=== PATIENT | male | born 1970 | race Caucasian/White ===

== ENCOUNTER 2018-06-09 20:38 | Emergency (ER) | payer OTHER ==
[2018-06-09 20:48] VITALS: BP 113/65; PULSE 68; TEMP 98.3; BMI 27.9
--- NOTE | 2018-06-09 21:21 | PDOC ---
History of Present Illness - General Chief Complaint: Abscess Boil Stated Complaint: CYST RT ARM Time Seen by Provider: 06/09/18 21:03 History Source: Patient Exam Limitations: No Limitations - History of Present Illness Initial Comments: 06/09/18 21:16 48-year-old male presents to ED with bump to the right tricep area patient states had an abscess to area approximate months ago which he had drained successfully at the doctor's office. Patient denies history of immunosuppression , MRSA, fever or chills. Patient denies steroid use Timing/Duration: reports: other (1 week) Severity: Yes: mild Location: reports: extremities Respiratory Risk Factors: reports: no cause identified Associated Symptoms: reports: swelling/mass/lumps Past History - Travel Traveled outside of the country in the last 30 days: No Close contact w/someone who was outside of country & ill: No - Past Medical History Allergies/Adverse Reactions: Allergies Allergy/AdvReac Type Severity Reaction Status Date / Time No Known Allergies Allergy Verified 06/09/18 20:46 Home Medications: Ambulatory Orders Oxycodone HCl/Acetaminophen [Percocet 5-325 mg Tablet] 1 - 2 tab PO Q6H PRN #4 tab MDD 4 06/09/18 Sulfamethoxazole/Trimethoprim [Bactrim Ds -] 1 tab PO BID #14 tablet 06/09/18 COPD: No - Suicide/Smoking/Psychosocial Hx Smoking History: Never smoked Patient Lives Alone: No Lives with/in: spouse/SO Review of Systems - Review of Systems Able to Perform ROS?: Yes Constitutional: No: Symptoms Reported Musculoskeletal: No: Muscle Pain Integumentary: Yes: Lumps *Physical Exam - Vital Signs Last Vital Signs Temp Pulse Resp BP Pulse Ox 98.3 F 68 18 113/65 98 06/09/18 20:46 06/09/18 20:46 06/09/18 20:46 06/09/18 20:46 06/09/18 20:46 - Physical Exam General Appearance: Yes: Nourished, Appropriately Dressed. No: Apparent Distress Extremity: negative: Normal Inspection Integumentary: positive: Other (2 cm erythematous fluctuant raised abscess to right mid tricep) Neurologic: positive: Motor Strength 5/5 (ambulatory) Procedures - Incision and Drainage I&D Site: Right: Arm Betadine cleansed: Yes Anesthesia: 1% Lidocaine Volume(ml): 1 Blade Size: 11 Attempts: 1 Dressing: Yes Medical Decision Making - Medical Decision Making 06/09/18 21:20 CC: abscess to rt tricep, denies hx mrsa Exam: fluctulant abscess Plan: i& D done. wound cx sent. Dc home with bactrim and percocet x 4 tabs *DC/Admit/Observation/Transfer Diagnosis at time of Disposition: Abscess of arm, right - Discharge Dispostion Disposition: HOME Condition at time of disposition: Improved - Prescriptions Prescriptions: Oxycodone HCl/Acetaminophen [Percocet 5-325 mg Tablet] 1 - 2 tab PO Q6H PRN #4 tab MDD 4 PRN Reason: Pain Sulfamethoxazole/Trimethoprim [Bactrim Ds -] 1 tab PO BID #14 tablet - Referrals Referrals: Glenna Santiago [Primary Care Provider] - - Patient Instructions Printed Discharge Instructions: DI for Incision and Drainage of a Skin Abscess Additional Instructions: Take antibiotics as prescribed. Change dressing daily. - Post Discharge Activity
== END 2018-06-09 21:22 | disposition home or self-care (01) ==
LOC: JERFT 20:38
PROC: 0J9D0ZZ Drainage of Right Upper Arm Subcutaneous Tissue and Fascia, Open Approach (ICD-10-PCS; principal; 2018-06-09)
DX: L02.413 Cutaneous abscess of right upper limb (principal)
CPT/HCPCS: 10060; 87070; 87077; 87205; 99281-25